=== PATIENT | male | born 1990 | race Two or more races ===

== ENCOUNTER 2020-09-13 16:34 | Emergency (ER) | payer SELFPAY ==
[~2020-09-13] VITALS: Ht 160 cm; Wt 70.9 kg
[2020-09-13 16:38] VITALS: BP 112/52; Ht 160 cm; Wt 70.9 kg
[2020-09-13 18:09] LABS: BASOPHILS 0.5 % (0-2); EOSINOPHILS 1.4 % (0-7); HEMATOCRIT 42.2 % (42.0-54.0); HEMOGLOBIN 14.7 g/dL (13.5-17.5); LYMPHOCYTES 32.6 % (15-50); MCH 30.9 pg (26.0-34.0); MCHC 34.7 g/dL (31.0-37.0); MCV 88.9 fL (80.0-100.0); MEAN PLATELET VOLUME 7.3 fL (7.4-10.4); MONOCYTES 5.3 % (2-11); NEUTROPHILS 60.2 % (40-80); PLATELET COUNT 192 10x3/uL (130-400); RBC 4.75 10x6/uL (4.20-6.10); RDW 12.8 % (11.5-14.5); WBC 10.6 10x3/uL (4.8-10.8)
[2020-09-13 18:18] LABS: CALC OSMOLALITY 279 mosm/kg (275-300); CALCIUM 8.3 mg/dL (8.5-10.1); CARBON DIOXIDE 28.6 mmol/L (21.0-32.0); CHLORIDE - SERUM 104 mmol/L (98-107); CREATININE - SERUM 0.9 mg/dL (0.6-1.3); GLUCOSE 99 mg/dL (74-106); POTASSIUM - SERUM 3.5 mmol/L (3.5-5.1); SODIUM 140 mmol/L (136-145); UREA NITROGEN 16 mg/dL (7-18); eGFR NON AFRICAN AMERICAN > 90 mL/min (90-120)
[2020-09-13 18:24] LABS: ALBUMIN 4.1 g/dL (3.4-5.0); ALKALINE PHOSPHATASE 97 U/L (30-120); ALT (SGPT) 92 U/L (10-68); BILIRUBIN - TOTAL 1.28 mg/dL (0.2-1.3); PROTEIN - SERUM 7.6 g/dL (6.4-8.2)
[2020-09-13] MEDS ORDERED: CEPHALEXIN500 M1 PO (20:32)
[2020-09-13] MEDS ORDERED: NAPROSYN500 MG PO (20:32)
[2020-09-13] MEDS ORDERED: CLEOCIN HCL300 MG PO (20:32)
[2020-09-13] MEDS ORDERED: HYDROCODON-ACE1 EAC7 PO (20:32)
== END 2020-09-13 20:49 | disposition home or self-care (01) ==
LOC: D.ER 16:34
PROVIDERS: Family Medicine
DX: L02.512 Cutaneous abscess of left hand (principal); L03.114 Cellulitis of left upper limb